=== PATIENT | male | born 1940 | race Caucasian/White ===

== ENCOUNTER 2021-02-06 08:50 | Outpatient (CLI) | payer MEDICARE | END 2021-02-06 08:51 | disposition home or self-care (01) | LOC: BICRAD 08:50 | PROVIDERS: ATTEND Family Medicine | DX: M25.551 Pain in right hip (principal); M54.9 Dorsalgia, unspecified; M47.816 Spondylosis without myelopathy or radiculopathy, lumbar region | CPT/HCPCS: 72100 ==